=== PATIENT | female | born 1960 | race American Indian/Alaskan Native ===

== ENCOUNTER → 2017-02-05 | Outpatient (CLI) | payer OTHER ==
[~2017-02-05] MED LIST: Gadobenate Dimeglumine 529 MG/ML 20 ML SDV IV ONE
--- NOTE | 2017-02-06 11:52 | MR ---
EXAM DATE: 02/05/17 PATIENT'S AGE: 56 Patient: INDER SCHMIDT Facility: [place], [place] Site . Site : 1960 Study: MRI Spine Cervical [id number]/22/2017 7:30:06 PM Ordering Physician: Niki Moe Final Report: Indication: Neck pain. Radiculopathy. Comparison: None. Technique: Sagittal T1, T2, and STIR sequences. Axial T2/gradient sequences. post gadolinium 2 weighted sequences. Findings: Normal vertebral body facet alignment. No fractures. No vertebral body loss of height. No spondylolisthesis. No ligamentous injury. Normal marrow signal. No suspicious osseous lesions. Normal cord signal. No intradural mass or lesion. No abnormal enhancement or enhancing lesions. C2-3: No spinal canal or neural foraminal narrowing. C3-4: Disk degeneration with a shallow posterior disc bulge. No narrowing of spinal canal. No neural foraminal narrowing. C4-5: Disc degeneration with loss of disc height. Posterior disc bulge or disk osteophyte complex. Mild narrowing of spinal canal. Moderate right and mild left neural foraminal narrowing. Possible impingement of the right C5 nerve root. C5-6: Disc degeneration with loss of disc height. Broad-based disc osteophyte complex. Mild narrowing of spinal canal. Moderate bilateral neural foraminal narrowing with possible impingement of the C6 nerve roots. C6-7: Disc degeneration with posterior disc bulge or disk osteophyte complex. No narrowing of spinal canal. Mild to moderate narrowing of the bilateral neural foramina. Possible encroachment of the C7 nerve roots. C7-T1: No spinal canal or neural foraminal narrowing. Impression: 1. Normal alignment. No fractures. No spondylolisthesis. 2. Normal cord signal. No abnormal enhancement. 3. Cervical spondylosis 4. At C4-5, mild narrowing of the spinal canal. Moderate right and mild left neural foraminal narrowing. Possible impingement of the right C5 nerve root 5. At C5-6, mild narrowing of the spinal canal. Moderate bilateral foraminal narrowing with possible impingement of the C6 nerve roots 6. At C6-7, mild to moderate narrowing of the bilateral neural foramina. Possible encroachment of the C7 nerve roots Dictated by Freddie Leon MD @ Feb 05 2017 9:52PM (Electronic Signature) Report Signed by Proxy. BENJAMIN
== END ==
LOC: MW.MRI 16:42
PROVIDERS: ATTEND Physician Assistant
DX: M54.12 Radiculopathy, cervical region (principal); R51 Headache; R20.0 Anesthesia of skin; M48.02 Spinal stenosis, cervical region
CPT/HCPCS: 72156; A9577

== ENCOUNTER 2020-12-28 11:43 | Emergency (ER) | payer OTHER ==
--- NOTE | 2020-12-28 12:08 | EDM.PDOC ---
ED HPI GENERAL MEDICAL PROBLEM - General Chief Complaint: Upper Extremity Injury/Pain Stated Complaint: INJURY LEFT HAND Time Seen by Provider: 12/28/20 11:44 Source of Information: Reports: Patient History Limitations: Reports: No Limitations - History of Present Illness INITIAL COMMENTS - FREE TEXT/NARRATIVE: HISTORY AND PHYSICAL: History of present illness: Patient is a 60-year-old female who presents to the ED today with concern of left hand and forearm pain that occurred after a fall that occurred yesterday. Patient states that yesterday evening, she had just brought groceries into the house and states that her shoes were wet from the snow. Patient states she slipped on her tile floor and hit her left forearm and hand on a cement decoration that she had on the floor. Patient states that she did not hit her head or lose consciousness. Patient states she has the most significant pain in her left hand ring finger but is also having some forearm pain. Patient states she has full sensation but does have limited range of motion of the fourth digit due to pain. States that she has not taken anything for her symptoms. Patient denies fever, chills, chest pain, shortness of breath, or cough. Denies headache, neck stiff ness, change in vision, syncope, or near syncope. Denies nausea, vomiting, abdominal pain, diarrhea, constipation, or dysuria. Has not noted any blood in urine or stool. Patient has been eating and drinking appropriately. Review of systems: As per history of present illness and below otherwise all systems reviewed and negative. Past medical history: As per history of present illness and as reviewed below otherwise noncontributory. Surgical history: As per history of present illness and as reviewed below otherwise noncontributor y. Social history: See social history for further information Family history: As per history of present illness and as reviewed below otherwise noncontributory. Physical exam: General: Patient is alert, oriented, and in no acute distress. Patient sitting comfortably on exam table. HEENT: Atraumatic, normocephalic, pupils equal and reactive bilaterally, negative for conjunctival pallor or scleral icterus, mucous membranes moist, TMs normal bilaterally, throat clear, neck supple, nontender, trachea midline. No drooling or trismus noted. No meningeal signs. No hot potato voice noted. Lungs: Clear to auscultation, breath sounds equal bilaterally, chest nontender. Heart: S1S2, regular rate and rhythm without overt murmur Abdomen: Soft, nondistended, nontender. Negative for masses or hepat osplenomegaly. Negative for costovertebral tenderness. Pelvis: Stable nontender. Genitourinary: Deferred. Rectal: Deferred. Skin: Intact, warm, dry. No lesions or rashes noted. Extremities: Ecchymosis noted to the left hand ring finger and medial forearm of the left. Edema noted to the left hand ring finger. Patient has full range of motion of the complete left upper extremity but does have pain with range of motion of the ring finger of the left. Radial pulses grossly intact of the left upper extremity with capillary refill less than 2 seconds. Intact sensation to light and deep touch of the complete left upper extremity. Compartments are soft of the left upper extremity. Otherwise, atraumatic, negative for cords or calf pain. Neurovascular unremarkable. Neuro: Awake, alert, oriented. Cranial nerves II through XII unremarkable. Cerebellum unremarkable. Motor and sensory unremarkable throughout. Exam nonfocal. Notes: Symptoms that were prompt return to the ED thoroughly discussed with patient. Discussed importance of follow-up with a primary care provider. Voices understanding and is agreeable to plan of care. Denies any further questions or concerns at this time. Diagnostics: forearm/hand XR LT Therapeutics: Finger splint Prescription: None Impression: Finger injury, left, 4th digit Forearm injury, left Plan: 1. Rest, ice, elevate the affected extremity. You can apply ice 15 minutes on, 15 minutes off. 2. Tylenol and/or Ibuprofen as directed for pain management or discomfort. 3. Follow up with the primary care provider as discussed. Return to the ED as needed and as discussed. Definitive disposition and diagnosis as appropriate pending reevaluation and review of above. Left Arm Pain Score (Numeric/FACES): 8 - Related Data Allergies Allergy/AdvReac Type Severity Reaction Status Date / Time sulfamethoxazole Allergy Other Verified 12/28/20 11:54 [From Bactrim] trimethoprim [From Bactrim] Allergy Other Verified 12/28/20 11:54 Past Medical History HEENT History: Reports: None Cardiovascular History: Reports: Hypertension Respiratory History: Reports: None Gastrointestinal History: Reports: None Genitourinary History: Reports: None [employer] History: Reports: None Musculoskeletal History: Reports: None Neurological History: Reports: None Psychiatric History: Reports: Depression Endocrine/Metabolic History: Reports: None Dermatologic History: Reports: None - Infectious Disease History Infectious Disease History: Reports: Chicken Pox, Mumps Social & Family History - Tobacco Use Tobacco Use Status *Q: Never Tobacco User - Caffeine Use Caffeine Use: Reports: None - Recreational Drug Use Recreational Drug Use: No Review of Systems - Review of Systems Review Of Systems: Comprehensive ROS is negative, except as noted in HPI. ED EXAM, GENERAL - Physical Exam Exam: See Below (see dictation) Course - Vital Signs Last Recorded V/S: Last Vital Signs Temp 96.8 F L 12/28/20 11:55 Pulse 81 12/28/20 11:55 Resp 16 12/28/20 11:55 BP 174/69 H 12/28/20 11:55 Pulse Ox 94 L 12/28/20 11:55 Departure - Departure Time of Disposition: 13:04 Disposition: Home, Self-Care 01 Clinical Impression: Injury of left ring finger Qualifiers: Encounter type: initial encounter Qualified Code(s): S69.92XA - Unspecified injury of left wrist, hand and finger(s), initial encounter Forearm injury Qualifiers: Encounter type: initial encounter Laterality: left Qualified Code(s): S59.912A - Unspecified injury of left forearm, initial encounter - Discharge Information Referrals: PCP,None [Primary Care Provider] - Forms: ED Department Discharge Additional Instructions: The following information is given to patients seen in the emergency department who are being discharged to home. This information is to outline your options for follow-up care. We provide all patients seen in our emergency department with a follow-up referral. The need for follow-up, as well as the timing and circumstances, are variable depending upon the specifics of your emergency department visit. If you don't have a primary care physician on staff, we will provide you with a referral. We always advise you to contact your personal physician following an emergency department visit to inform them of the circumstance of the visit and for follow-up with them and/or the need for any referrals to a consulting specialist. The emergency department will also refer you to a specialist when appropriate. This referral assures that you have the opportunity for follow-up care with a specialist. All of these measure are taken in an effort to provide you with optimal care, which includes your follow-up. Under all circumstances we always encourage you to contact your private physician who remains a resource for coordinating your care. When calling for follow-up care, please make the office aware that this follow-up is from your recent emergency room visit. If for any reason you are refused follow-up, please contact the [facility] Emergency Department at and asked to speak to the emergency department charge nurse. [facility] [address] [place] [id number] [facility] [address] [place] [id number] 1. Rest, ice, elevate the affected extremity. You can apply ice 15 minutes on, 15 minutes off. 2. Tylenol and/or Ibuprofen as directed for pain management or discomfort. 3. Follow up with the primary care provider as discussed. Return to the ED as needed and as discussed. Sepsis Event Note (ED) - Evaluation Sepsis Screening Result: No Definite Risk - Focused Exam Vital Signs: Vital Signs Temp Pulse Resp BP Pulse Ox 12/28/20 11:55 96.8 F L 81 16 174/69 H 94 L
--- NOTE | 2020-12-28 12:58 | CR ---
HISTORY: Fall. Injury. TECHNIQUE: Left forearm 2 views. Left hand 3 views. COMPARISON: None. FINDINGS: Forearm: No fracture. Joint spaces of the elbow are maintained. Olecranon enthesophyte. Hand: No fracture or dislocation. 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 Mild osteoarthritis at other IP joints. Severe osteoarthritis of the 1st carpometacarpal joint. Negative ulnar variance. Osteoarthritis of the distal radioulnar joint. IMPRESSION: No acute bone abnormality in the left forearm or hand. Dictated by Yoshi Rudd MD @ Dec 28 2020 12:51PM Signed by Dr. Yoshi Rudd @ Dec 28 2020 12:57PM
== END 2020-12-28 13:25 | disposition home or self-care (01) ==
LOC: MW.ED 11:43
DX: S69.92XA Unspecified injury of left wrist, hand and finger(s), initial encounter (principal); S59.912A Unspecified injury of left forearm, initial encounter; I10 Essential (primary) hypertension; Z88.2 Allergy status to sulfonamides; Z88.1 Allergy status to other antibiotic agents; W01.198A Fall on same level from slipping, tripping and stumbling with subsequent striking against other object, initial encounter; Y92.000 Kitchen of unspecified non-institutional (private) residence as the place of occurrence of the external cause
CPT/HCPCS: 29130; 73090-26-LT; 73090-LT; 73130-26-LT; 73130-LT; 99283; 99283-25